=== PATIENT | male | born 1950 | race Two or more races ===

== ENCOUNTER 2024-01-30 14:21 | Outpatient (CLI) | payer OTHER | END 2024-01-30 14:22 | disposition home or self-care (01) | LOC: ULT 14:21 | PROVIDERS: ATTEND Internal Medicine Nephrology | DX: I12.9 Hypertensive chronic kidney disease with stage 1 through stage 4 chronic kidney disease, or unspecified chronic kidney disease (principal); N18.9 Chronic kidney disease, unspecified | CPT/HCPCS: 76770; 93975 ==